=== PATIENT | female | born 1975 | race Asian ===

== ENCOUNTER → 2017-06-29 | Outpatient (REF) | payer BC | LOC: M LAB REF 14:02 | PROVIDERS: ATTEND Specialist | DX: Z12.4 Encounter for screening for malignant neoplasm of cervix (principal); R87.612 Low grade squamous intraepithelial lesion on cytologic smear of cervix (LGSIL) ==

== ENCOUNTER → 2017-06-30 | Outpatient (CLI) | payer BC ==
--- NOTE | 2017-06-30 11:12 | REP ---
PELVIC ULTRASOUND: Real-time sonographic evaluation of the pelvis is performed utilizing transabdominal and endovaginal technique. The urinary bladder measures 3.9 x 5.1 x 8.7 cm. The uterus measures 9.2 x 4.0 x 4.5 cm. Endometrial thickness is 18 mm. Within the endometrial echo complex are two rounded areas of slightly hypoechoic echotexture relative to the endometrium. These rounded areas measure 1.3 x 1.0 x 1.7 cm and 1.0 x 0.6 x 1.2 cm. These may represent endometrial polyps. There is no endometrial fluid. Large anterior right fibroid measure 9.5 x 8.1 x 9.1 cm. Right ovary measures 4.5 x 2.4 x 3.7 cm and left ovary measures 2.9 x 1.7 x 1.7 cm. There appears to be a complex follicle in the right ovary 1.8 cm in diameter. There is blood flow seen in each ovary with duplex Doppler evaluation, with no torsion. IMPRESSION: Large fibroid anterior right uterus. Suspect two endometrial polyps. Signed by Rich Moe MD 06/30/2017 05:09 P
== END ==
LOC: M SMT 07:51
PROVIDERS: ATTEND Specialist
DX: D25.2 Subserosal leiomyoma of uterus (principal)

== ENCOUNTER → 2017-07-22 | Outpatient (REF) | payer BC | LOC: M LAB REF 17:32 | PROVIDERS: ATTEND Specialist | DX: N87.0 Mild cervical dysplasia (principal) ==

== ENCOUNTER 2017-08-25 06:06 | Day surgery (SDC) | payer BC ==
[~2017-08-25] VITALS: Ht 157.5 cm; Wt 46.7 kg
[2017-08-25] MEDS ORDERED: LR 1,000 ML IV SCH ×3 (06:30→11:30)
[2017-08-25 06:35] LABS: MEAN CORPUSCULAR HEMOGLOBIN 32.6 pg (27.0-33.0); MEAN CORPUSCULAR HGB CONC 34.6 g/dl (32.0-36.5); MEAN CORPUSCULAR VOLUME 94.2 fl (80.0-96.0); RED CELL DISTRIBUTION WIDTH 11.5 % (11.5-14.5); WHITE BLOOD COUNT 4.6 10^3/uL (4.0-10.0)
[2017-08-25 06:55] LABS: CONTROL LINE UCG INT CTR LINE PRESENT
[2017-08-25] MEDS ORDERED: MIDAZOLAM INJ 2 MG/2 ML VIAL (J2250) As Ordered ONE (07:09)
[2017-08-25] MEDS ORDERED: fentaNYL 100 MCG/2 ML INJECTION (J3010) As Ordered ONE (07:09)
[2017-08-25] MEDS ORDERED: BUPIVACAINE HCL 0.25% 30 ML VIAL As Ordered ONE (07:14)
[2017-08-25] MEDS ORDERED: METHYLENE BLUE 0.5% (5MG/ML) 10 ML AMP (PROVAYBLUE)(Q9968 PER 1MG) As Ordered ONE (07:14)
[2017-08-25] MEDS ORDERED: SCOPOLAMINE 1.5 MG TRANSDERMAL As Ordered ONE (07:17)
[2017-08-25] MEDS ORDERED: LIDOCAINE 1% MDV 20ML VIAL SC ONE (07:30)
[2017-08-25] MEDS ORDERED: SCOPOLAMINE 1.5 MG TRANSDERMAL TOP ONE (08:00)
[2017-08-25] MEDS ORDERED: dexameTHASONE 4 MG/ML 1ML VIAL (J1100) As Ordered ONE (08:09)
[2017-08-25] MEDS ORDERED: ONDANSETRON 4MG/2ML VIAL (J2405) As Ordered ONE (08:09)
[2017-08-25] MEDS ORDERED: LIDOCAINE 2% INJ 100 MG/5 ML SDV (FOR ANES.) As Ordered ONE (08:09)
[2017-08-25] MEDS ORDERED: PROPOFOL 200 MG/20 ML VIAL As Ordered ONE (08:09)
[2017-08-25] MEDS ORDERED: ROCURONIUM BROMIDE 50 MG/5 ML VIAL/SYRINGE As Ordered ONE (08:09)
[2017-08-25] MEDS ORDERED: KETOROLAC 60 MG/2 ML VIAL (J1885) As Ordered ONE (08:12)
[2017-08-25] MEDS ORDERED: HYDROmorphone HCL 2 MG/ML 1ML VIAL (J1170) As Ordered ONE (08:25)
[2017-08-25] MEDS ORDERED: DESFLURANE 240 ML INHALANT As Ordered ONE (09:12)
[2017-08-25] MEDS ORDERED: METOCLOPRAMIDE INJ 10MG/2ML VIAL (J2765) IV PRN (11:30)
[2017-08-25] MEDS ORDERED: fentaNYL 100 MCG/2 ML INJECTION (J3010) IV PRN (11:30)
[2017-08-25] MEDS ORDERED: ONDANSETRON 4MG/2ML VIAL (J2405) IV PRN ×2 (11:30→11:45)
[2017-08-25] MEDS ORDERED: MORPHINE 4 MG/ML 1ML SYRINGE IV PRN (11:30)
[2017-08-25] MEDS ORDERED: HYDROmorphone HCL 1 MG/ML SYRINGE (J1170) IV PRN (11:30)
[2017-08-25] MEDS ORDERED: PERCOCET 5MG/325MG TAB PO PRN ×3 (11:30→11:45)
[2017-08-25 12:05] VITALS: BP 120/69
[2017-08-25 12:30] VITALS: BP 112/65
[2017-08-25 13:30] VITALS: BP 103/59
[2017-08-25 14:30] VITALS: BP 109/66
[2017-08-25] MEDS: KETOROLAC 30 MG/ML VIAL (J1885) IV PRN ×2 (14:42→20:35)
[2017-08-25 15:30] VITALS: BP 105/59
[2017-08-25 16:30] VITALS: BP 128/72
--- NOTE | 2017-08-25 18:38 | RO ---
DATE OF PROCEDURE: 08/25/2017 PREOPERATIVE DIAGNOSIS: Large fibroid uterus. Pelvic pain. POSTOPERATIVE DIAGNOSIS: Large fibroid uterus. Pelvic pain. PROCEDURE: Robotic assisted laparoscopic hysterectomy and cystoscopy. SURGEON: Dr. Baldomero Goodwin X RAY PHYSICIAN: Surjit Pisano ANESTHESIA: General endotracheal. ESTIMATED BLOOD LOSS: 200 mL. FINDINGS: 438 gram enlarged irregular fibroid uterus, normal ovaries and fallopian tube, normal upper abdomen. OPERATIVE SUMMARY: The patient taken to the operating room where general endotracheal anesthesia was induced. She was prepped, draped in the sterile fashion in the dorsal lithotomy position. Gibbons catheter was placed. A V-care uterine manipulator was placed. Periumbilical incision was made with a scalpel. A Veress needle was placed through this incision with tenting up on skin of the abdomen. Intraabdominal location of the Veress needle was assessed with use of a saline filled syringe. Pneumoperitoneum was created. The 11 mm trocar using Quantopian was inserted through this incision, three 8 mm suprapubic ports were placed under direct visualization without difficulty. The patient was placed in Trendelenburg position. The Da Jacinta surgical robot was docked to the ports. Using the PK dissector monopolar endoshears the fallopian tubes, utero-ovarian ligament and round ligaments were coagulated incised. The anterior and posterior leads of the broad ligament were . Bladder flap was created. Colpotomy was created circumferentially at the upper vagina tunnel with the V-care cup. Specimen including the uterus, cervix was detached. The uterus was extremely large and had to be removed from the vagina with morcellation. Da Jacinta was undocked at this time and uterus was removed in multiple pieces. Robot was docked again and the vaginal cuff was closed with V-lock sutures in a running fashion. The pelvis was irrigated. Cystoscopy was performed using a 70 degree cystoscope. Patient received Methylene blue dye intravenously. There was no evidence of injury to the bladder. Bilateral ureteral jets were identified. Cystoscope was removed. A small vaginal laceration from morcellation of the fibroids was repaired with #2-0 Vicryl. The umbilical port was closed with #0-Vicryl. The skin was closed with #4-0 Monocryl in a subcuticular sutures. Sponge, instrument, and needle counts were correct.
[2017-08-25] MEDS: DOCUSATE SODIUM 100 MG CAP PO SCH (20:35)
[2017-08-26] VITALS: BP 110/61
[2017-08-26 04:00] VITALS: BP 105/58
[2017-08-26 07:15] LABS: MEAN CORPUSCULAR HEMOGLOBIN 32.3 pg (27.0-33.0); MEAN CORPUSCULAR HGB CONC 34.4 g/dl (32.0-36.5); MEAN CORPUSCULAR VOLUME 93.8 fl (80.0-96.0); RED CELL DISTRIBUTION WIDTH 11.4 % (11.5-14.5); WHITE BLOOD COUNT 6.8 10^3/uL (4.0-10.0)
[2017-08-26 08:00] VITALS: BP 135/73
[2017-08-26] MEDS: DOCUSATE SODIUM 100 MG CAP PO SCH (08:37)
== END 2017-08-26 09:40 | disposition home or self-care (01) ==
LOC: M SDC 06:06 → M PED 12:01 → M SDC 08-26 09:40
PROVIDERS: ATTEND Specialist
DX: D25.9 Leiomyoma of uterus, unspecified (principal); R10.2 Pelvic and perineal pain; N72 Inflammatory disease of cervix uteri
CPT/HCPCS: 36415; 58572; 84703; 85027; 88309; 96374; 96375; J0690; J1100; J1170; J1885; J2250; J2405; J3010; Q9968

== ENCOUNTER → 2017-10-26 | Outpatient (CLI) | payer BC ==
--- NOTE | 2017-10-26 08:54 | REPMRS ---
Patient History The patient states she had a clinical breast exam in 08/31 Baseline Mammogram Patient is nulliparous. No known family history of cancer. Digital Woman Screen Mammo: October 26, 2017 - Exam #: [id number] Bilateral CC and MLO view(s) were taken. Technologist: Debbie Crump, Technologist FINDINGS: The breast tissue is extremely dense which could obscure a lesion on mammography. Small scattered benign appearing calcifications are present. There is no evidence of cancer on this mammogram. ASSESSMENT: BI-RADS/ACR category 2 mammogram. Benign finding(s). Recommendation Routine screening mammogram of both breasts in 1 year (for women over age 40). This mammogram was interpreted with the aid of an FDA-approved computer-aided dectection system. Electronically Signed By: Rich Moe MD 10/26/17 [id number]
== END ==
LOC: M WHC 07:20
PROVIDERS: ATTEND Specialist
DX: Z12.31 Encounter for screening mammogram for malignant neoplasm of breast (principal)

== ENCOUNTER → 2020-01-18 | Outpatient (REF) | payer BC ==
[2020-01-18 13:38] LABS: BASO % 0.8 % (0.0-1.0); EOS # 0.1 10^3/uL (0.0-0.5); EOS % 2.7 % (0.0-3.0); HEMATOCRIT 40.2 % (36.0-47.0); HEMOGLOBIN 13.3 g/dl (12.0-15.5); LYMPH # 1.4 10^3/uL (1.5-5.0); LYMPH % 29.7 % (24.0-44.0); MEAN CORPUSCULAR HEMOGLOBIN 32.3 pg (27.0-33.0); MEAN CORPUSCULAR HGB CONC 33.1 g/dl (32.0-36.5); MEAN CORPUSCULAR VOLUME 97.6 fl (80.0-96.0); MONO # 0.3 10^3/uL (0.0-0.8); MONO % 6.7 % (0.0-5.0); NEUTROPHILS # 2.8 10^3/uL (1.5-8.5); NEUTROPHILS % 59.9 % (36.0-66.0); PLATELET COUNT, AUTOMATED 163 10^3/uL (150-450); RED BLOOD COUNT 4.12 10^6/uL (4.00-5.40); WHITE BLOOD COUNT 4.8 10^3/uL (4.0-10.0)
[2020-01-18 14:29] LABS: ALT/SGPT 16 U/L (12-78); BILIRUBIN,TOTAL 0.8 MG/DL (0.2-1.0); BLOOD UREA NITROGEN 17 MG/DL (7-18); CALCIUM LEVEL 8.6 MG/DL (8.5-10.1); CARBON DIOXIDE LEVEL 27 MEQ/L (21-32); CHLORIDE LEVEL 105 MEQ/L (98-107); CHOLESTEROL LEVEL 181 MG/DL (<200); CHOLESTEROL RISK RATIO 3.067 (<5); CREATININE FOR GFR 0.66 MG/DL (0.55-1.30); FERRITIN 197 NG/ML (8-252); FOLATE 10.2 NG/ML; FREE T4 1.09 NG/DL (0.76-1.46); GLOMERULAR FILTRATION RATE > 60.0 (>58); GLUCOSE, FASTING 86 MG/DL (70-100); HDL CHOLESTEROL 59 MG/DL (>40); IRON (FE) 163 UG/DL (50-170); LDL CHOLESTEROL 109 MG/DL (<100); NON-HDL-C 122 MG/DL; POTASSIUM SERUM 3.4 MEQ/L (3.5-5.1); SODIUM LEVEL 138 MEQ/L (136-145); TOTAL IRON BINDING CAPACITY 247 UG/DL (250-450); TOTAL PROTEIN 7.2 GM/DL (6.4-8.2); TRIGLYCERIDES LEVEL 63 MG/DL (<150); VITAMIN B12 LEVEL 630 PG/ML
[2020-01-20 00:06] LABS: ANA (HEP2) Negative (.); Lyme Disease IgG/IgM Antibodie <0.91 ISR (0.00-0.90); Lyme Disease IgM Ab Quantitati <0.80 index (0.00-0.79)
== END ==
LOC: M LABNEURO 13:11
PROVIDERS: ATTEND Physician Assistant
DX: Z13.29 Encounter for screening for other suspected endocrine disorder (principal); Z13.220 Encounter for screening for lipoid disorders; R42 Dizziness and giddiness

== ENCOUNTER → 2020-03-20 | Outpatient (CLI) | payer BC ==
--- NOTE | 2020-03-20 10:06 | REPMRS ---
Patient History The patient states she has not had a clinical breast exam in over a year. No known family history of cancer. Digital Woman Screen Mammo: March 20, 2020 - Exam #: [id number] Bilateral CC and MLO view(s) were taken. Technologist: Kristin Abreu Technologist Prior study comparison: October 26, 2017, digital woman screen mammo performed at [facility]. FINDINGS: The breast tissue is extremely dense which could obscure a lesion on mammography. The Volpara volumetric breast density category is: D. There are some benign milk of calcium type calcifications noted unchanged. There is an extremely dense symmetrical pattern of residual fibroglandular tissue. There has been no change in the appearance of the mammogram from the previous studies. There is no interval development of dominant mass, archetectural distortion, or grouped microcalcifications suggestive of malignancy. 3-D tomosynthesis shows no additional findings. Assessment: BI-RADS/ACR category 2 mammogram. Benign Findings. Recommendation Routine screening mammogram of both breasts in 1 year (for women over age 40). This patient's Lifetime Breast Cancer RIsk is estimated at 14.0 %. This mammogram was interpreted with the aid of an FDA-approved computer-aided dectection system. Electronically Signed By: Marcos Hu MD 03/20/20 [id number]
== END ==
LOC: M WHC 08:45
PROVIDERS: ATTEND Physician Assistant
DX: Z12.31 Encounter for screening mammogram for malignant neoplasm of breast (principal)

== ENCOUNTER → 2021-03-18 | Outpatient (CLI) | payer BC ==
--- NOTE | 2021-03-18 15:20 | REP ---
INDICATION: NON TRAUMATIC PAIN COMPARISON: None. TECHNIQUE: AP, lateral, bilateral oblique views right and left ankle. FINDINGS: The bilateral osseous structures, joint spaces, and surrounding soft tissues are essentially symmetric and age-appropriate. No overt osteoarthritic degenerative changes are appreciated. Ankle mortise is normal bilaterally. Surrounding soft tissues are unremarkable. IMPRESSION: Symmetric age-appropriate examination of the bilateral ankles. <Electronically signed by Joaquin Allison > 03/18/21 0193
== END ==
LOC: M WUC 10:18
PROVIDERS: ATTEND Physician Assistant
DX: M25.579 Pain in unspecified ankle and joints of unspecified foot (principal)

== ENCOUNTER → 2023-01-12 | Outpatient (CLI) | payer BC ==
[2023-01-12 12:38] LABS: EOS # 0.1 10^3/uL (0.0-0.5); EOS % 3.6 % (0.0-3.0); HEMATOCRIT 35.8 % (36.0-47.0); LYMPH # 1.1 10^3/uL (1.5-5.0); LYMPH % 29.4 % (24.0-44.0); MEAN CORPUSCULAR HEMOGLOBIN 33.4 pg (27.0-33.0); MEAN CORPUSCULAR HGB CONC 33.5 g/dl (32.0-36.5); MEAN CORPUSCULAR VOLUME 99.7 fl (80.0-96.0); MONO # 0.3 10^3/uL (0.0-0.8); MONO % 8.3 % (2.0-8.0); NEUTROPHILS # 2.2 10^3/uL (1.5-8.5); NEUTROPHILS % 57.4 % (36.0-66.0); PLATELET COUNT, AUTOMATED 170 10^3/uL (150-450); RED BLOOD COUNT 3.59 10^6/uL (4.00-5.40); WHITE BLOOD COUNT 3.9 10^3/uL (4.0-10.0)
[2023-01-12 12:43] LABS: C REACTIVE PROTEIN QUANTITATIV < 0.40 MG/DL (<1.0)
[2023-01-12 12:46] LABS: ERYTHROCYTE SEDIMENTATION RATE 25 mm/hr (0-20)
[2023-01-12 12:47] LABS: ALBUMIN 3.6 G/DL (3.2-5.2); ALKALINE PHOSPHATASE 51 U/L (46-116); ALT/SGPT 15 U/L (7.0-40); AST/SGOT 14 U/L (<34); BILIRUBIN,TOTAL 0.7 MG/DL (0.3-1.2); BLOOD UREA NITROGEN 13 MG/DL (9-23); CALCIUM LEVEL 9.1 MG/DL (8.5-10.1); CARBON DIOXIDE LEVEL 28 MMOL/L (20-31); CHLORIDE LEVEL 107 MMOL/L (98-107); CHOLESTEROL LEVEL 147 MG/DL (<200); CHOLESTEROL RISK RATIO 2.53 (<5); CREATININE FOR GFR 0.53 MG/DL (0.55-1.30); FOLATE 8.77 NG/ML (>5.4); FREE T4 1.05 NG/DL (0.89-1.76); GLOMERULAR FILTRATION RATE > 60.0 (>58); GLUCOSE, FASTING 91 MG/DL (60-100); HDL CHOLESTEROL 58.1 MG/DL (>40); NON-HDL-C 89 MG/DL; POTASSIUM SERUM 3.8 MMOL/L (3.5-5.1); SODIUM LEVEL 138 MMOL/L (136-145); THYROID STIMULATING HORMONE 2.124 uIU/ML (0.55-4.78); TOTAL 25(OH) VITAMIN D 25.1 NG/ML (20.0-100.0); VITAMIN B12 LEVEL 483 PG/ML (211-911)
[2023-01-12 15:28] LABS: LDL CHOLESTEROL 79.9 MG/DL (<100); TOTAL PROTEIN 6.4 G/DL (5.7-8.2); TRIGLYCERIDES LEVEL 45 MG/DL (<150)
[2023-01-13 23:07] LABS: ANA (HEP2) Negative (.)
== END ==
LOC: M WUC 08:39
PROVIDERS: ATTEND Physician Assistant
DX: R51.9 Headache, unspecified (principal); Z13.29 Encounter for screening for other suspected endocrine disorder; E55.9 Vitamin D deficiency, unspecified; Z12.31 Encounter for screening mammogram for malignant neoplasm of breast; M47.897 Other spondylosis, lumbosacral region

== ENCOUNTER → 2023-01-12 | Outpatient (CLI) | payer BC | LOC: M PLAIMG 06:44 | PROVIDERS: ATTEND Physician Assistant | DX: J34.1 Cyst and mucocele of nose and nasal sinus (principal); R51.9 Headache, unspecified ==

== ENCOUNTER → 2023-02-02 | Outpatient (CLI) | payer BC ==
[2023-02-02 12:25] LABS: BASO % 0.9 % (0.0-1.0); EOS # 0.2 10^3/uL (0.0-0.5); EOS % 4.7 % (0.0-3.0); HEMATOCRIT 38.5 % (36.0-47.0); LYMPH # 1.2 10^3/uL (1.5-5.0); LYMPH % 28.7 % (24.0-44.0); MEAN CORPUSCULAR HEMOGLOBIN 33.7 pg (27.0-33.0); MEAN CORPUSCULAR HGB CONC 33.8 g/dl (32.0-36.5); MEAN CORPUSCULAR VOLUME 99.7 fl (80.0-96.0); MONO # 0.3 10^3/uL (0.0-0.8); MONO % 7.1 % (2.0-8.0); NEUTROPHILS # 2.5 10^3/uL (1.5-8.5); NEUTROPHILS % 58.4 % (36.0-66.0); PLATELET COUNT, AUTOMATED 177 10^3/uL (150-450); RED BLOOD COUNT 3.86 10^6/uL (4.00-5.40); WHITE BLOOD COUNT 4.3 10^3/uL (4.0-10.0)
[2023-02-02 13:02] LABS: PERCENT SATURATION 64.7 % (13.2-45.0)
[2023-02-02 13:04] LABS: FERRITIN 254.1 NG/ML (7.3-270.7)
== END ==
LOC: M WUC 09:35
PROVIDERS: ATTEND Physician Assistant
DX: D72.89 Other specified disorders of white blood cells (principal); D64.9 Anemia, unspecified